=== PATIENT | female | born 1955 | race American Indian/Alaskan Native ===

== ENCOUNTER 2021-11-06 06:30 | Day surgery (SDC) | payer BC, MEDICARE ==
[2021-11-06] MEDS ORDERED: ASPIRIN EC 325 MG TAB PO NR (06:52)
[2021-11-06 07:28] LABS: Basophils % (Auto) 0.8 % (0.0-1.8); Eosinophils # (Auto) 0.3 K/mm3 (0.0-0.4); Eosinophils % (Auto) 4.7 % (0.0-4.3); Hematocrit 35.5 % (30.3-42.9); Lymphocytes # (Auto) 1.8 K/mm3 (1.2-5.4); Lymphocytes % (Auto) 28.9 % (13.4-35.0); Mean Corpuscular HGB Conc 34 % (30-34); Mean Corpuscular Volume 89 fl (79-97); Monocytes # (Auto) 0.5 K/mm3 (0.0-0.8); Monocytes % (Auto) 7.5 % (0.0-7.3); Platelet Count 232 K/mm3 (140-440); Red Blood Count 3.99 M/mm3 (3.65-5.03); Red Cell Distribution Width 14.2 % (13.2-15.2)
[2021-11-06] MEDS: SODIUM CHLORIDE 0.9% 500 ML 500 ML IV SCH ×2 (07:29→08:07)
[2021-11-06 07:37] LABS: INR 0.85 (0.87-1.13)
[2021-11-06 07:38] LABS: Partial Thromboplastin Time 29.7 Sec. (24.2-36.6)
[2021-11-06 07:42] LABS: BUN/Creatinine Ratio 19; Blood Urea Nitrogen 15 mg/dL (7-17); Calcium 9.3 mg/dL (8.4-10.2); Hemolysis Index 1
[2021-11-06] MEDS ORDERED: HEPARIN/NS 5000 UNIT/500ML 1,000 ML IR ONE (08:03)
[2021-11-06] MEDS ORDERED: HEPARIN 10,000 UNITS/10 ML VIAL ONE (08:03)
[2021-11-06] MEDS ORDERED: VERAPAMIL 5 MG/2 ML INJ ONE (08:04)
[2021-11-06] MEDS: LIDOCAINE (2%) 20 MG/1 ML VIAL 50 ML MDV INFILTRATI ONE ×2 (08:06→08:59)
[2021-11-06] MEDS ORDERED: fentaNYL 100 MCG/2 ML INJ ONE (08:38)
[2021-11-06] MEDS: MIDAZOLAM 2 MG/2 ML INJ ONE ×2 (08:41→08:55)
--- NOTE | 2021-11-06 10:07 | Cardiac Catherization Report ---
DATE OF SERVICE: 11/06/2021 CARDIAC CATH REPORT DATE OF PROCEDURE: 11/06/2021 INDICATIONS: Abnormal myocardial perfusion scan imaging, new onset heart failure. PROCEDURE: The patient was brought to the lab in the fasting state and after consent was obtained was brought to the seed analysis laboratory assistant. After a timeout was done, the patient was sedated with 2 mg of Versed. The right groin was prepped and draped in the usual manner and with local Xylocaine injected into the right groin for local anesthesia using an 18-gauge needle, the right femoral artery was engaged and a 6-Sinhala sheath was then introduced into the femoral artery and flushed with heparinized solution. Using a 6-Sinhala Sharon catheter, the left coronary artery was engaged and images obtained in the standard views. Catheter was then removed and a 6-Sinhala right Sharon catheter was then introduced and a right coronary artery was imaged in a standard view. This was then removed and a pigtail was introduced and hemodynamic pressures were obtained of the left ventricle. Using a hand injection, left ventricular function was then imaged. Catheter was then pulled back with no documented gradient across the aortic valve. ANGIOGRAPHY: * Left main coronary artery was normal size and normal. * Left anterior descending artery was normal size and mildly tortuous without any significant stenosis. * Left circumflex artery and obtuse marginal branches were imaged and within normal limits. * Right coronary artery was moderate size and dominant with no stenosis. * Left ventriculogram showed normal global function estimated left ventricular ejection fraction approximately 50%. CONCLUSIONS: * Systemic arterial hypertension. * Normal jamul coronary arteries. * Normal left ventricular global systolic function. RECOMMENDATION: Recommend medical therapy with risk factor modification. TID: [id number] RECEIPT: [id number] [facility]
--- NOTE | 2021-11-06 10:36 | Discharge Summary ---
Short Stay Discharge Plan Activity: advance as tolerated Weight Bearing Status: Partial Weight Bearing Diet: low fat, low cholesterol, low salt Wound: keep clean and dry Special Instructions: smoking cessation Follow up with: DION SORIANO MD [Primary Care Provider] - 7 Days KASI ISAAC MD [Staff Physician] - 7 Days
[2021-11-06] MEDS ORDERED: SODIUM CHLORIDE 0.9% 1000 ML 1,000 ML IV SCH (10:45)
[2021-11-06] MEDS ORDERED: traMADol 50 MG TAB PO PRN (11:00)
[2021-11-06 14:10] VITALS: BP 126/68
--- NOTE | 2021-11-06 17:48 | Electrocardiograph Report ---
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
== END 2021-11-06 15:45 | disposition home or self-care (01) ==
LOC: CATHLABREC 06:30
PROVIDERS: ATTEND Internal Medicine Cardiovascular Disease
DX: R94.39 Abnormal result of other cardiovascular function study (principal); I11.0 Hypertensive heart disease with heart failure; I50.9 Heart failure, unspecified; D50.0 Iron deficiency anemia secondary to blood loss (chronic); K21.9 Gastro-esophageal reflux disease without esophagitis; M10.9 Gout, unspecified; E78.00 Pure hypercholesterolemia, unspecified; J44.9 Chronic obstructive pulmonary disease, unspecified; G47.30 Sleep apnea, unspecified; Z98.891 History of uterine scar from previous surgery; Z91.040 Latex allergy status; Z79.899 Other long term (current) drug therapy; Z79.82 Long term (current) use of aspirin; Z98.49 Cataract extraction status, unspecified eye; Z98.890 Other specified postprocedural states; Z82.49 Family history of ischemic heart disease and other diseases of the circulatory system
CPT/HCPCS: 36415; 80048; 85025; 85610; 85730; 93005; 93458; C1894; J1644; J2250; J3010; J3490; J7040; Q9967